=== PATIENT | female | born 2005 | race African-American/Black ===

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

== ENCOUNTER 2025-03-06 16:31 | Emergency (ER) | payer OTHER, SELFPAY ==
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
[2025-03-06 16:47] VITALS: BP 109/62; PULSE 80; RESP 18; TEMP 36.5; O2SAT 100
== END 2025-03-06 17:50 | disposition home or self-care (01) ==
PROVIDERS: Emergency Provider Nurse Practitioner Family
DX: S63.637A Sprain of interphalangeal joint of left little finger, initial encounter (principal); X58.XXXA Exposure to other specified factors, initial encounter
CPT/HCPCS: 73130; 99213; G0463

== ENCOUNTER 2025-04-03 11:56 | Emergency (ER) | payer OTHER, SELFPAY ==
[2025-04-03 12:03] VITALS: BP 109/57; PULSE 56; RESP 20; TEMP 36.7; O2SAT 99
--- NOTE | 2025-04-03 12:13 | ED_ITS ---
HPI - Dental/Oral General Chief complaint: Dental/Oral Stated complaint: tooth pain Time Seen by Provider: 04/03/25 12:13 Source: patient, RN notes reviewed and old records reviewed Mode of arrival: ambulatory Limitations: no limitations History of Present Illness HPI Narrative: 20-year-old female presents to the [facility] with complaints of a toothache. Patient reports right lower gum discomfort, currently in braces. Swelling noted to the middle molar right lower. Patient currently Related Data Allergies Allergy/AdvReac Type Severity Reaction Status Date / Time No Known Allergies Allergy Unverified 04/03/25 12:16 Review of Systems 2 Review of Systems: All systems reviewed & are unremarkable except as noted in HPI and below Constitutional: Constitutional: Reports no additional constitutional complaints ENT: Reports system reviewed and no additional complaints, except as documented Cardiovascular: Cardiovascular: Reports no additional cardiovascular complaints, Denies chest pain and Denies dyspnea Respiratory: Respiratory: Reports no additional respiratory complaints, Denies chest congestion, Denies cough and Denies dyspnea Musculoskeletal: Musculoskeletal: Reports no additional musculoskeletal complaints Integumentary/Breasts: Skin/Breast: Reports system reviewed and no additional complaints, except as docu PMFSH Past Medical History Medical History No significant medical problems Surgical History Surgical History No pertinent past surgical history Comments At the time of my signature, I reviewed and agree with the nursing past medical, surgical, social, and family history. There is no relevant family history pertinent to the patient complaint. Exam 2 Const: General: cooperative, healthy appearing, comfortable, no acute distress, well developed, alert and well nourished Nutritional Appearance: w ell nourished Orientation/consciousness: patient oriented x3 Limitations: no limitations HENMT: Head: normal to inspection Mouth: Yes lip normal, Yes tongue normal and Yes moist mucous membranes Teeth image: 1. erythema, swelling Eyes: General: appearance normal, both eyes and all related structures A lignment and Position: alignment normal Neck: Neck: normal visual inspection, full ROM, no lymphadenopathy and no meningeal signs Chest: Chest palpation & inspection: normal inspection of the chest Resp: Effort & Inspection: normal respiratory effort and able to speak in complete sentences Auscultation: clear to auscultation bilaterally, no crackles, no rales, no rhonchi and no wheezes Cardio: Rate: regular rate Skin: General skin exam: normal color and no rashes or lesions noted Neuro: General: patient oriented x3, gait normal, moves all extremities and no meningeal signs Cognition (Neuro): normal cognition Speech: normal speech Gait exam (Neuro): Normal gait present Extrem: General: normal to inspection, full ROM, capillary refill normal and normal gait Psych: Appearance: grossly normal and well kempt Mental Status: mental status grossly normal Speech and movement: Normal speech and movement present and Clear speech present Affect: normal affect Attitude: cooperative Course Course Level of Care: Express Care Visit Vital Signs Vital signs: Vital Signs Temperature 98.1 F 04/03/25 12:03 Pulse Rate 56 L 04/03/25 12:03 Respiratory Rate 20 04/03/25 12:03 Blood Pressure 109/57 L 04/03/25 12:03 Pulse Oximetry 99 04/03/25 12:03 Oxygen Delivery Room Air 04/03/25 12:03 Temperature 98.1 F 04/03/25 12:03 Pulse Rate 56 L 04/03/25 12:03 Respiratory Rate 20 04/03/25 12:03 Blood Pressure 109/57 L 04/03/25 12:03 Pulse Oximetry 99 04/03/25 12:03 Oxygen Delivery Room Air 04/03/25 12:03 Reviewed MDM - Dental/Oral MDM Narrative Medical decision making narrative: Patient sitting in exam room. Patient is nontoxic, vitals stable. Patient presents with dental pain right lower. Patient appropriate for outpatient treatment with close follow-up. List of providers for dental given. Discharge instructions reviewed with patient, as well as provided in writing per nursing staff. The instructions also include specific and strict return/GO TO THE ER as well as f/u information. All questions have been answered, and the patient deny any further questions with discharge and discharge plan. Some parts of this dictation were generated by voice recognition software and may contain typographical and/or grammatical inaccuracies. Differential Diagnosis Differential diagnosis: Likely gingival abscess, dental caries, toothache, dental abscess, fracture of tooth and aphthous ulcer Critical Care Time Critical Care Time Critical Care Time: No Discharge Plan Discharge Clinical Impression: Toothache, Dental infection Patient Disposition: Home Condition: Stable Instructions: Antibiotic Form, Dental Abscess (ED) Additional Instructions: Finish the entire course of antibiotics Use a good mouthwash every time you brought After every time you eat be sure to use salt water rinses. Apply ice to face to help with pain. Take Tylenol alternating with Motrin as needed for pain. You can alternate every 4 hours You need to follow-up with a dental provider as soon as possible for further evaluation and treatment. A list of dental providers has been given to you Follow up with a Primary Care Provider (PCP) about medical needs. A PCP can help keep you healthy by preventive medicine and screening. Go to the ER for New or worsening symptoms. Patient Language: Slovak Prescriptions: New amoxicillin 875 mg tablet 875 mg PO Q12H Qty: 20 0RF Follow-up/Referrals: PHYSICIAN,DIRECTOR OF SERVICES [Primary Care Provider, Internal Medicine] Stand Alone Forms: Work/School Release IP Time of Disposition: 12:25
== END 2025-04-03 12:30 | disposition home or self-care (01) ==
PROVIDERS: Emergency Provider Nurse Practitioner
DX: K04.7 Periapical abscess without sinus (principal)
CPT/HCPCS: 99213; G0463